=== PATIENT | male | born 1985 | race Caucasian/White ===

== ENCOUNTER 2020-07-09 06:15 | Emergency (ER) | payer OTHER ==
[~2020-07-09] VITALS: Ht 162.6 cm; Wt 68.0 kg
[2020-07-09] MEDS ORDERED: LAMICTAL100 MG PO (06:25)
[2020-07-09] MEDS ORDERED: TRAZODONE HCL50 MG PO (06:25)
[2020-07-09] MEDS ORDERED: PREDNISONE50 MG PO (06:40)
[2020-07-09] MEDS ORDERED: TRAMADOL 50 MG50 MG PO (06:40)
[2020-07-09 07:30] VITALS: BP 137/80
== END 2020-07-09 07:31 | disposition home or self-care (01) ==
LOC: M.ERS 06:15
DX: M25.511 Pain in right shoulder (principal); Z88.2 Allergy status to sulfonamides